=== PATIENT | female | born 1975 | race Caucasian/White ===

== ENCOUNTER 2016-08-22 08:56 | Emergency (ER) | payer OTHER ==
[~2016-08-22] VITALS: Ht 162.6 cm; Wt 99.5 kg
[2016-08-22 09:05] VITALS: Ht 162.6 cm; Wt 99.5 kg
--- NOTE | 2016-08-22 11:40 | RADRPT ---
PROCEDURE: XR Lumbar Spine. CLINICAL INDICATION: Lumbar spine pain. TECHNIQUE: AP, lateral, and cone-down lateral view of the lumbar spine were obtained. COMPARISON: No prior studies are available for comparison. FINDINGS: The alignment of the lumbar spine is within normal limits. The T10 vertebral body is at the margin of the film and not well evaluated. The lumbar vertebral body heights and marrow density are normal in appearance. There is preservation of the intervertebral disc spaces. There is no significant f acet spondylosis. The neural foramina appear patent. The paraspinal soft tissues unremarkable. IMPRESSION: 1. The lower thoracic spine at T10-T11 are not well evaluated. 2. Normal radiographs of the lumbar spine. No evidence of fracture or significant degenerative dis c disease. RPTAT: HGAS .Nicho Li MD, Date Time Electronically viewed and signed by .Nicho Li MD, on 08/22/2016 11:40 .S/
[2016-08-22] MEDS ORDERED: KETOROLAC 30 MG INJ IM STA (11:49)
[2016-08-22] MEDS ORDERED: CYCL-319 PO (12:03)
[2016-08-22] MEDS ORDERED: NAPR-260 PO (12:03)
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
== END 2016-08-22 12:23 | disposition home or self-care (01) ==
LOC: FTE 08:56
DX: M54.5 Low back pain (principal); Z04.1 Encounter for examination and observation following transport accident
CPT/HCPCS: 72100; 96372; J1885; Z7502